=== PATIENT | female | born 1990 | race Caucasian/White ===

== ENCOUNTER → 2023-07-02 13:50 | Outpatient (REF) | payer OTHER, SELFPAY | LOC: HWRAD 13:50 | PROVIDERS: ATTENDING PHYSICIAN Otolaryngology; FAMILY PHYSICIAN Nurse Practitioner | DX: J01.01 Acute recurrent maxillary sinusitis (principal) | CPT/HCPCS: 70486 ==

== ENCOUNTER 2023-10-17 06:25 | Day surgery (SDC) | payer OTHER, SELFPAY ==
[2023-10-17] VITALS (10 sets, daily range): BP systolic 91–122; BP diastolic 49–78; BMI 21.3
[2023-10-17] MEDS: NORMOSOL-R 1000 IV (08:40)
[2023-10-17] MEDS: ROXICODONE 5 MG PO (13:34)
[2023-10-17] MEDS: ZOFRAN 4 MG IV (14:21)
== END 2023-10-17 15:15 | disposition home or self-care (01) ==
LOC: SDS 06:25
PROVIDERS: ATTENDING PHYSICIAN Otolaryngology Facial Plastic Surgery
DX: J32.9 Chronic sinusitis, unspecified (principal); J33.9 Nasal polyp, unspecified; J34.3 Hypertrophy of nasal turbinates
CPT/HCPCS: 31267; 30140; 31255; 88304; 88311

== ENCOUNTER → 2023-11-14 09:39 | Outpatient (REF) | payer OTHER, SELFPAY | LOC: DHSLP 09:39 | PROVIDERS: ATTENDING PHYSICIAN Internal Medicine Critical Care Medicine; FAMILY PHYSICIAN Nurse Practitioner | DX: G47.30 Sleep apnea, unspecified (principal); R06.83 Snoring | CPT/HCPCS: 95800 ==

== ENCOUNTER 2024-01-06 11:25 | Emergency (ER) | payer OTHER, SELFPAY ==
[2024-01-06 11:39] VITALS: BP 136/74
[2024-01-06 11:56] LABS: % Basophils 0.6 % (0-2); % Eosinophils 0.6 % (0-6); % Immature Granulocytes 0.2 % (0-0.5); % Monocytes 5.9 % (1.7-9.3); % Neutrophils 66.7 % (42.2-75.2); Absolute Lymphocytes 1.6 10^3/uL (1.2-3.4); Absolute Monocytes 0.4 10^3/uL (0.1-0.6); Absolute Neutrophils 4.1 10^3/uL (1.4-6.5); Hematocrit 38.2 % (37.0-47.0); Hemoglobin 13.1 g/dL (12.0-16.0); Mean Corp Hgb Conc. 34.3 g/dL (33.0-37.0); Mean Corpuscular Hgb 28.4 pg (27.0-31.0); Mean Corpuscular Volume 82.7 fL (81.0-99.0); Mean Platelet Volume 10.7 fL (7.4-10.4); Nucleated Red Blood Cells % 0 %; Platelet Count 174 10^3/uL (130-400); Red Blood Cell Count 4.62 10^6/uL (4.20-5.40); Red Cell Dist. Width 12.8 % (11.5-14.5); White Blood Cell Count 6.2 10^3/uL (4.8-10.8)
--- NOTE | 2024-01-06 12:03 | ED.GENMED ---
History of Present Illness
General
Chief Complaint: Headache
Source: patient
Exam Limitations: none
Time Seen by Provider: 01/06/24 11:59
Nursing documentation reviewed up to this point in time: agreed with
History of Present Illness
History of Present Illness:
Patient is a 33-year-old female presenting to the emergency department for evaluation of headache. Patient states she was sitting on the couch yesterday afternoon at 1:30 PM when she had acute onset headache. Patient describes headache as a
throbbing headache throughout her entire head. She does note some 'tension 'in her neck patient states that she was unable to sleep throughout the entire night due to the headache. Headache is worse with eye movements although she does deny any
visual symptoms include photophobia, diplopia, blurry vision, etc. Patient denies any associated fevers, chills, nausea, vomiting, confusion.
Patient did take Tylenol and Advil yesterday with little relief.
Patient denies any history of headaches. She states that she has never had a headache similar to this.
Patient did have sinus surgery 10/02.
Past History
Past History
ED Past Medical History: None
ED Past Surgical History: None
Social History
Tobacco: Non-smoker
Alcohol: None
Drug: None
Personal: Single
Living: with family
Employment: Not employed
Family History
Family History: Other (Noncontributory)
Review of Systems
Review of Systems
Allergies reviewed?: Yes
All Other Systems: ROS reviewed and negative except as documented in HPI and ROS
Phy Exam
Physical Exam
Physical Exam:
Vitals: Patient's vital signs are stable. Afebrile
General: Patient is well appearing. Nontoxic appearing
Skin: Warm and dry, no rashes or lesions
Head: Normocephalic, atraumatic
Eyes: Sclera nonicteric. EOMs intact. No nystagmus. Pupils equal round and reactive to light bilaterally. No tenderness overlying sinuses. No tenderness of bilateral temporal region.
Throat: No tenderness to TMJ. No trismus. Protecting airway
Neck: Normal ROM, no cervical spine tenderness, no meningismus
Cardiac: Regular rate and rhythm, no murmurs.
Pulm: Normal respiratory effort, no wheezes, rales, rhonchi heard on exam.
Abdomen: Abdomen soft. No abdominal tenderness.
Extremities: No evidence of cyanosis or edema. Good distal pulses
Neuro: AAOx3. CN II-XII intact. No focal neurologic deficits. Strength 5 out of 5 in upper and lower extremities. Sensation fully intact. Fluid speech. Steady gait.
Psychiatric: Normal affect.
Course
Orders/Labs/Results
Orders:
Orders
01/06/24 11:42
Test Result ONCE
01/06/24 11:49
Complete Blood Count/With Diff Urgent
Comprehensive Metabolic Panel Urgent
HCG, Serum Qualitative Screen Urgent
Lyme Progressive Urgent
Comment: ADDON
TSH Reflex To Free T4 Urgent
Comment: ADDON
01/06/24 12:45
CT Head W/o Iv Contrast Urgent
Comment:
Reason For Exam: headache
0.9% Sodium Chloride 1000 ml [Nss] 1,000 ml IV BOLUS
Ketorolac [Toradol] 15 mg IV NOW STA
01/06/24 12:46
Add On- LAB Urgent
Tests Added?: TSH w/ reflex to T4
01/06/24 12:59
COVID-19 Antigen Urgent
Source: Nasal Swab
01/06/24 13:27
Diphenhydramine [Benadryl] 25 mg IV NOW STA
Prochlorperazine [Compazine] 10 mg IV NOW STA
01/06/24 14:18
Add On- LAB Urgent
Tests Added?: lyme progressive
01/06/24 14:44
Acetaminophen [Tylenol] 1,000 mg PO NOW STA
Abnormal Lab Results
01/06/24
11:49
MPV 10.7 H fL
(7.4-10.4)
Glucose 127 H mg/dl
(70-99)
01/06/24 11:49
01/06/24 11:49
Vital Signs
Initial and Last Documented VS:
Initial Vital Signs
Temp Pulse Resp BP Pulse Ox
98.7 F 76 18 136/74 100
01/06/24 11:39 01/06/24 11:39 01/06/24 11:39 01/06/24 11:39 01/06/24 11:39
Last Documented Vital Signs
Temp Pulse Resp BP Pulse Ox
98.7 F 74 9 120/81 98
01/06/24 11:39 01/06/24 14:45 01/06/24 14:45 01/06/24 14:00 01/06/24 13:00
MDM/Problems Addressed
Differential Diagnosis Includes:
Not limited to: Migraine headache, tension headache, cluster headache, viral illness, dehydration, Lyme disease, mass
MDM/Problems Addressed:
33 year old female presenting with persistent headache for the past 24 hours despite OTC medications. No visual symptoms or vertiginous symptoms. No known trigger or trauma. No history of similar headaches. VSS stable, patient afebrile. Patient well
appearing, conversational. She is nontoxic appearing. Visual law intact. No meningeal signs. No focal neurological deficits on exam. Patient has steady gait. No tenderness overlying temporal arteries bilaterally. Do not suspect giant cell
arteritis. Labs obtained - no clinically significant abnormalities. CT head was obtained which showed no acute abnormalities.
Patient was given IV fluids and toradol followed by compazine/benadryl. Patient does report some improvement in symptoms. Otherwise stable. Suspect likely migraine headache vs tension headache.
Patient comfortable and eager for discharge. She will try motrin/tylenol at home and f/u with primary care. Close return precautions discussed. Patient hungry and very stable upon discharge from emergency department. Case discussed with attending
physician.
Chronic conditions affecting care:
N/A
Acute Exacerbation and/or Progression of Chronic Illness:
N/A
*Radiology
Radiology exam reviewed: preliminary read by ED provider and radiology read reviewed
*Pulse Oximetry
Patient hypoxic: no
*EKG
Interpreted by ED Provider?: NA
*Lasting Floorworker Interpretation
Rate: Lasting Floorworker- N/A
*Critical Care Note
Total Time (30-74mins, 75-104mins- exclusive of procedures): Not Applicable
ED Attending Note
-
Portions of this chart may have been created with voice recognition software.� Occasional wrong word or��sound alike� substitutions may have occurred due to the inherent limitations of voice recognition software.
Discharge Plan
Departure
Patient Disposition: Home (Routine Discharge)
Date of Disposition: 01/06/24
Time of Disposition: 15:11
Patient with high blood pressure during this ER visit?: No
Condition: Good
Covid-19: Negative COVID-19
Discharge Problem:
Headache
Instructions: Headache, Adult (DC)
Prescriptions:
No Action
ascorbic acid (vitamin C) [Vitamin C] 500 mg Tablet
500 mg PO DAILY
cholecalciferol (vitamin D3) [Vitamin D3] 25 mcg (1,000 unit) Tablet
25 mcg PO DAILY
oregano oil
230 mg PO BID
zinc
30 mg PO DAILY
Referrals:
Fauzia Hines CRNP [Family Provider] - Follow up in 2-3 days
Activity Restrictions/Additional Instructions:
RETURN TO THE EMERGENCY DEPARTMENT WITH ANY FEVERS, CHILLS, SEVERE/WORSENING HEADACHE, INTRACTABLE NAUSEA/VOMITING, CONFUSION, VISUAL CHANGES, OR ANY OTHER CONCERNS
-As discussed�it is important to stay well-hydrated. You can take Tylenol and/or Motrin as needed at home for any pain.
-We did send a Lyme disease test today. Will call you in a few days if these results are positive.
-Follow-up with your primary care physician for further evaluation/management and to ensure that symptoms are improving.
Monitor your symptoms closely and return to the emergency department with any acute worsening/new symptoms.
Interventions
Interventions:
*Risk Screen - Suicide Last Done: 01/06/24 11:39
*General Assessment Last Done: 01/06/24 11:39
*Neglect/Abuse Screening Last Done: 01/06/24 11:39
ED- Fall Risk Assessment Last Done: 01/06/24 12:12
*ED COVID-19 Vaccine History Last Done: 01/06/24 12:06
*Nursing Disposition Last Done: 01/06/24 15:21
ED- Neurological Assessment Last Done: 01/06/24 12:12
Discharge Date and Time
Discharge Date/Time: 01/06/24 15:21
Print Language: VIET[place]ESE
[2024-01-06 12:08] VITALS: BP 109/83
[2024-01-06 12:12] VITALS: BMI 21.6
[2024-01-06 12:12] LABS: HCG, Serum Qualitative Screen Negative
[2024-01-06 12:22] LABS: ALT (SGPT) 21 U/L (0-35); AST (SGOT) 27 U/L (14-36); Albumin 4.4 g/dl (3.5-5.0); Alkaline Phosphatase 59 U/L (38-126); Blood Urea Nitrogen 10 mg/dl (7-17); Calcium 9.3 mg/dl (8.4-10.2); Carbon Dioxide 23 mmol/L (22-30); Chloride 105 mmol/L (98-107); Estimated Creatinine Clearance 85 ml/min; Glucose 127 mg/dl (70-99); Potassium 3.9 mmol/L (3.5-5.1); Sodium 138 mmol/L (135-145); Total Bilirubin 1.1 mg/dl (0.2-1.3); Total Protein 6.9 g/dl (6.3-8.2); eGFR > 60.00
[2024-01-06] MEDS: TORADOL 15 MG IV (12:57)
[2024-01-06] MEDS: NSS 1000 IV (12:58)
[2024-01-06 13:00] VITALS: BP 108/78
[2024-01-06 13:23] LABS: COVID-19 Antigen Negative (Negative)
[2024-01-06] MEDS: BENADRYL 25 MG IV (13:39)
[2024-01-06] MEDS: COMPAZINE 10 MG IV (13:39)
[2024-01-06 14:00] VITALS: BP 120/81
[2024-01-06] MEDS: TYLENOL 1000 MG PO (14:48)
[2024-01-06 16:27] LABS: TSH Reflex To Free T4 1.14 uIU/ml (0.47-4.68)
[2024-01-08 17:15] LABS: Lyme Antibody Screen, EIA Negative (Negative)
== END 2024-01-06 15:21 | disposition home or self-care (01) ==
LOC: EMR 11:25
PROVIDERS: Emergency Medicine; Physician Assistant; EMERGENCY PHYSICIAN Emergency Medicine; FAMILY PHYSICIAN Nurse Practitioner
DX: R51.9 Headache, unspecified (principal)
CPT/HCPCS: 99284; 96374; 96375; 96361; 70450; 80053; 84443; 84703; 85025; 86618; 87811